=== PATIENT | male | born 1945 | race Caucasian/White ===

== ENCOUNTER 2017-01-19 07:24 | Outpatient (CLI) | payer MEDICARE, OTHER ==
[2017-01-19 07:55] LABS: Cardiac Risk 3.4 (Less than 4.5); Cholesterol 200 mg/dl (< 200 Desired); Glucose 106 mg/dL (83-110); HDL Cholesterol 59 mg/dL (>60 Neg Risk); LDL Cholesterol, Calculated 122 mg/dL; Triglycerides 97 mg/dL (Less than 150)
[2017-01-19 08:24] LABS: PSA-Asymptomatic (SCREENING) 0.33 ng/mL (0-4.0)
[2017-01-19 17:28] LABS: Hep C IgG Ab Non-Reactive (NonReactive); Hep C Index 0.15 S/CO (0-0.79)
== END 2017-01-19 07:25 ==
LOC: MADLAB 07:24
PROVIDERS: ATTEND Family Medicine
DX: Z12.5 Encounter for screening for malignant neoplasm of prostate (principal); Z13.1 Encounter for screening for diabetes mellitus; Z11.59 Encounter for screening for other viral diseases; Z13.6 Encounter for screening for cardiovascular disorders; Z00.00 Encounter for general adult medical examination without abnormal findings
CPT/HCPCS: 36415; 80061; 82947; 86803; G0103

== ENCOUNTER 2018-03-24 13:18 | Outpatient (CLI) | payer MEDICARE, OTHER ==
--- NOTE | 2018-03-24 15:09 | RAD ---
TWO VIEWS LEFT HIP: Date: 03-24-18 History: Left hip pain after a fall. FINDINGS: There is no evidence of a fracture, dislocation involving the left hip. Post-surgical changes related to posterior fusion of the lower lumbar spine are partially imaged. IMPRESSION: No acute osseous abnormality involving the left hip. POS: [facility]
--- NOTE | 2018-03-24 15:22 | RAD ---
THREE VIEWS LEFT FOOT: History: Fall. Contusion. Comparison: None. FINDINGS: There is a hallux valgus deformity. Lisfranc alignment is maintained. There is no fracture. Joint spa moses are preserved. Overlying bandage material/wrapping material is noted. IMPRESSION: No fracture. POS: [facility]
== END 2018-03-24 13:19 | disposition home or self-care (01) ==
LOC: MADRAD 13:18
PROVIDERS: ATTEND Family Medicine
DX: S90.32XA Contusion of left foot, initial encounter (principal); M25.552 Pain in left hip; W19.XXXA Unspecified fall, initial encounter

== ENCOUNTER 2021-04-01 17:59 | Emergency (ER) | payer MEDICARE, OTHER ==
[2021-04-01 19:49] LABS: #Basophils 0.1 thou/uL (0.0-0.2); #Eosinphils 0.2 thou/uL (0.0-0.7); #Lymphocytes 1.2 thou/uL (1.20-3.40); #Monocytes 0.7 thou/uL (0.11-0.59); #Neutrophils 6.3 thou/uL (1.40-6.50); %Basophils 0.6 % (0.0-1.0); %Eosinophils 1.9 % (0.0-10.0); %Lymphocytes 14.7 % (21.0-51.0); %Monocytes 8.7 % (0.0-10.0); %Neutrophils 74.1 % (42.0-75.0); Hemoglobin 14.7 g/dL (14.0-18.0); Mean Corpuscular HGB CONC 32.6 g/dL (32.0-36.0); Mean Corpuscular Hemoglobin 31.8 pg (27.0-31.0); Mean Corpuscular Volume 97.8 fL (78.0-98.0); Mean Platelet Volume 7.7 fL (7.4-10.4); Platelet Count 213 thou/uL (130-400); RBC Distribution Width 13.4 % (11.5-14.5); Red Blood Cell (RBC) Count 4.61 mill/uL (4.70-6.10); White Blood Cell (WBC) Count 8.5 thou/uL (4.8-10.8)
[2021-04-01 19:59] LABS: Prothrombin Time 13.2 sec (12.0-14.7)
[2021-04-01 20:08] LABS: ALT (SGPT) 15 U/L (8-55); AST (SGOT) 14 U/L (5-34); Albumin 3.5 g/dL (3.4-4.8); Alkaline Phosphatase 46 U/L (40-110); Anion Gap 12 mmol/L (10-20); BUN (Urea Nitrogen) 30 mg/dL (8.4-25.7); Bilirubin, Total 0.5 mg/dL (0.2-1.2); Calc. Creatinine Clearance 0 mL/min (70-130); Calcium 9.1 mg/dL (7.8-10.44); Carbon Dioxide 24 mmol/L (23-31); Chloride 108 mmol/L (98-107); Globulin 2.7 g/dL (2.4-3.5); Glucose 97 mg/dL (83-110); Potassium 4.4 mmol/L (3.5-5.1); Protein, Total 6.2 g/dL (5.8-8.1); Sodium 140 mmol/L (136-145)
[2021-04-01] MEDS ORDERED: Lidocaine 1% w/Epinephrine 1:100K 20 ML VIAL ONE (20:18)
[2021-04-01] MEDS ORDERED: Boostrix 0.5 ML (Tdap) VIAL ONE (20:26)
== END 2021-04-01 20:45 | disposition home or self-care (01) ==
LOC: MADERS 17:59
DX: S01.01XA Laceration without foreign body of scalp, initial encounter (principal); I10 Essential (primary) hypertension; V69.9XXA Occupant (driver) (passenger) of heavy transport vehicle injured in unspecified traffic accident, initial encounter
CPT/HCPCS: 12002; 36415; 70450; 80053; 85025; 85610; 90471; 90715

== ENCOUNTER 2021-09-23 17:40 | Outpatient (CLI) | payer MEDICARE | END 2021-09-23 17:41 | disposition home or self-care (01) | LOC: MADRAD 17:40 | PROVIDERS: ATTEND Nurse Practitioner Family | DX: J18.9 Pneumonia, unspecified organism (principal); R05.9 Cough, unspecified | CPT/HCPCS: 71046 ==

== ENCOUNTER 2022-06-06 06:23 | Outpatient (CLI) | payer MEDICARE ==
[2022-06-06 07:18] LABS: Cardiac Risk 3.4 (Less than 4.5); Uric Acid 4.2 mg/dL (3.5-7.2)
== END 2022-06-06 06:24 | disposition home or self-care (01) ==
LOC: MADLAB 06:23
PROVIDERS: ATTEND Family Medicine
DX: Z00.00 Encounter for general adult medical examination without abnormal findings (principal); Z12.5 Encounter for screening for malignant neoplasm of prostate; M1A.9XX0 Chronic gout, unspecified, without tophus (tophi); I10 Essential (primary) hypertension
CPT/HCPCS: 36415; 80061; 84550; G0103